=== PATIENT | male | born 2005 | race Caucasian/White ===

== ENCOUNTER 2025-07-15 09:53 | Day surgery (SDC) | payer OTHER ==
[~2025-07-15] VITALS: Ht 170.2 cm; Wt 61.6 kg
[2025-07-15 12:19] VITALS: BP 117/85
== END 2025-07-15 12:27 | disposition home or self-care (01) ==
LOC: ORSCSDS 09:53
PROVIDERS: Internal Medicine Gastroenterology
PROC: 0DJD8ZZ Inspection of Lower Intestinal Tract, Via Natural or Artificial Opening Endoscopic (ICD-10-PCS; principal; 2025-07-15 11:15)
DX: R10.84 Generalized abdominal pain (principal); R19.4 Change in bowel habit; R93.3 Abnormal findings on diagnostic imaging of other parts of digestive tract
CPT/HCPCS: J2704; J7120